=== PATIENT | female | born 1990 | race Caucasian/White ===

== ENCOUNTER 2019-10-14 22:39 | Emergency (ER) | payer BC ==
[~2019-10-14] VITALS: Ht 157.5 cm; Wt 51.7 kg
[2019-10-14] MEDS ORDERED: LAMICTAL200 MG ORAL (22:44)
[2019-10-14] MEDS ORDERED: NALTREXONE HCL50 MG PO (22:44)
[2019-10-14] MEDS ORDERED: BUPROPION XL300 MG ORAL (22:44)
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
[2019-10-14 22:51] VITALS: BP 125/90
[2019-10-14] MEDS ORDERED: HYDROcodone/Acetamin 5/325 tab ORAL ONE (23:00)
[2019-10-14] MEDS ORDERED: IBUPROFEN600 MG ORAL (23:08)
[2019-10-14] MEDS ORDERED: SILVADENE20 GM TP (23:08)
[2019-10-14] MEDS ORDERED: NORCO 5-325 TA1 EACH ORAL (23:08)
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
[2019-10-14 23:20] VITALS: BP 125/90
--- NOTE | 2019-10-14 23:27 | NUR ---
ER DISCHARGE NOTE: Patient is cleared to be discharged per ERMD, pt is aox4, on room air, with stable vital signs. pt was given dc and prescription instructions, pt was able to verbalize understanding, pt id band removed. pt is able to ambulate with steady gait. pt took all belongings.
== END 2019-10-14 23:20 | disposition home or self-care (01) ==
LOC: EMR 23:07
DX: T23.201A Burn of second degree of right hand, unspecified site, initial encounter (principal); T23.231A Burn of second degree of multiple right fingers (nail), not including thumb, initial encounter; X15.3XXA Contact with hot saucepan or skillet, initial encounter; Y92.9 Unspecified place or not applicable
CPT/HCPCS: 99282